=== PATIENT | female | born 1950 | race Caucasian/White ===

== ENCOUNTER 2022-08-09 23:27 | Outpatient (CLI) | payer MEDICARE | END 2022-08-09 23:59 | disposition critical access hospital (66) | LOC: EMS 23:27 | DX: R55 Syncope and collapse (principal); R19.7 Diarrhea, unspecified; R73.9 Hyperglycemia, unspecified | CPT/HCPCS: A0425; A0427 ==

== ENCOUNTER 2022-08-09 23:42 | Emergency (ER) | payer MEDICARE ==
[2022-08-10] MEDS ORDERED: SODIUM CHLORIDE 0.9% 1,000 ML IV STA (00:03)
[2022-08-10] MEDS ORDERED: ONDANSETRON 4 MG/2 ML VIAL IVP STA (00:03)
[2022-08-10] MEDS ORDERED: ONDANSETRON 4 MG/2 ML VIAL ONE (00:13)
[2022-08-10] MEDS ORDERED: iohexoL-300 100 ML VIAL ONE (00:17)
[2022-08-10 00:23] LABS: BASOPHILS # (AUTO) 0.1 10^3/uL (0.0-0.1); BASOPHILS % (AUTO) 0.6 %; EOSINOPHILS # (AUTO) 0.1 10^3/uL (0.0-0.7); EOSINOPHILS % (AUTO) 1.2 %; HCT - HEMATOCRIT 49.4 % (37.0-47.0); HGB - HEMOGLOBIN 17.1 g/dL (12.0-16.0); LYMPHOCYTES % (AUTO) 19.8 %; MEAN CORPUSCULAR HEMOGLOBIN 29.2 pg (27.0-31.0); MEAN CORPUSCULAR HGB CONC 34.6 g/dL (32.0-36.0); MEAN CORPUSCULAR VOLUME 84.3 fL (81.0-99.0); MEAN PLATELET VOLUME 9.6 fL (7.9-10.8); MONOCYTES # (AUTO) 0.6 10^3/uL (0.0-1.0); MONOCYTES % (AUTO) 5.9 %; NEUTROPHILS # (AUTO) 7.2 10^3/uL (1.5-6.6); NEUTROPHILS % (AUTO) 72.1 %; PLT - PLATELET COUNT 191 10^3/uL (130-450); RED BLOOD COUNT 5.86 10^6/uL (4.20-5.40); RED CELL DISTRIBUTION WIDTH 12.2 % (12.0-15.0); WHITE BLOOD COUNT 9.9 x10^3/uL (4.8-10.8)
--- NOTE | 2022-08-10 00:45 | ED Physician Documentation ---
History of Present Illness - Stated complaint Stated Complaint: ABD PX - Chief complaint Chief Complaint: Abd Pain - Additonal information Additional information: Patient is 71-year-old female presenting to the emergency department with abdom inal pain, nausea, vomiting and syncope. Reports earlier this evening began feeling acutely nauseous and lightheaded. Hessel as though she needed to use the restroom however while in the bathroom she became increasingly lightheaded and syncopized. Reports that she has a longstanding history of a lower abdominal mass associated with the surgical site from the excision of a 14 pound ovarian cyst in 2019. Last bowel movement was earlier today. 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 , Ovarian cysts - Past Surgical History Past Surgical History: Yes General: Cholecystectomy /SWEATBAND SHAPER: Other HEENT: Tonsil/Adenoidectomy - Present Medications Home Medications: Ambulatory Orders Medication Instructions Recorded Confirmed No Known Home Medications 08/09/22 08/09/22 - Allergies Allergies/Adverse Reactions: Allergies Allergy/AdvReac Type Severity Reaction Status Date / Time No Known Drug Allergies Allergy Verified 08/09/22 23:59 - Social History Does the pt smoke?: No Smoking Status: Never smoker Does the pt drink ETOH?: No Does the pt have substance abuse?: No - Immunizations Immunizations: TDAP >10years/unknown PD ED PE NORMAL - Vitals Vital signs reviewed: Yes - General General: Alert and oriented X 3, No acute distress, Well developed/nourished - HEENT HEENT: Atraumatic, Pharynx benign - Neck Neck: Supple, no meningeal sign - Cardiac Cardiac: RRR, No murmur - Abdomen Abdomen: Other (Large ventral incisional hernia, tender to palpation.) Results - Vitals Vitals: Oxygen O2 Source Nasal cannula - EKG (time done) 0009 EKG releavant findings:: EKG personally interpreted by author of this note. Relevant findings are: Sinus rhythm with rate 86 bpm. Normal axis. Normal [place], QRS, QTc intervals. No ST segment elevations or T wave inversions. - Labs Labs: Laboratory Tests 08/10/22 08/10/22 08/10/22 00:11 00:11 00:11 WBC 9.9 RBC 5.86 H Hgb 17.1 H Hct 49.4 H MCV 84.3 MCH 29.2 MCHC 34.6 RDW 12.2 Plt Count 191 MPV 9.6 Neut # (Auto) 7.2 H Lymph # (Auto) 2.0 [place] # (Auto) 0.6 Eos # (Auto) 0.1 Baso # (Auto) 0.1 Absolute Nucleated RBC 0.00 Nucleated RBC % 0.0 PT INR Sodium 136 Potassium 4.1 Chloride 99 L Carbon Dioxide 26 Anion Gap 11.0 BUN 23 H Creatinine 0.9 Estimated GFR (MDRD) 62 L Glucose 402 H POC Whole Bld Glucose Lactic Acid Calcium 10.6 H Total Bilirubin 1.2 H AST 24 ALT 40 Alkaline Phosphatase 91 Troponin I High Sens < 2.3 L Total Protein 7.4 Albumin 4.2 Globulin 3.2 Albumin/Globulin Ratio 1.3 Lipase 30 08/10/22 08/10/22 08/10/22 00:11 00:49 02:05 WBC RBC Hgb Hct MCV MCH MCHC RDW Plt Count MPV Neut # (Auto) Lymph # (Auto) [place] # (Auto) Eos # (Auto) Baso # (Auto) Absolute Nucleated RBC Nucleated RBC % PT 10.9 INR 1.0 Sodium Potassium Chloride Carbon Dioxide Anion Gap BUN Creatinine Estimated GFR (MDRD) Glucose POC Whole Bld Glucose 460 H Lactic Acid 1.5 Calcium Total Bilirubin AST ALT Alkaline Phosphatase Troponin I High Sens Total Protein Albumin Globulin Albumin/Globulin Ratio Lipase PD Medical Decision Making - ED course Complexity details: reviewed old records, reviewed results, re-evaluated patient, d/w patient, d/w data quality consultant ED course: Pt presents with irreducible ventral hernia with SBO. Labs WNL. Hemodynamically stable. NGT placed. Pt declined pain medication. Given Zofran, droperidol for persistent N/V and 0.5 mg ativan for NGT placement. No Med surge beds in house. [facility] - Departure Disposition: 02 Transfer Acute Care Hosp Clinical Impression: Incarcerated ventral hernia, Small bowel obstruction Discharge Date/Time: 08/10/22 05:12
[2022-08-10 00:46] LABS: ALBUMIN 4.2 g/dL (3.2-5.5); ALBUMIN/GLOBULIN RATIO 1.3 (1.0-2.2); BILIRUBIN,TOTAL 1.2 mg/dL (0.2-1.0); CALCIUM 10.6 mg/dL (8.5-10.3); CREATININE 0.9 mg/dL (0.4-1.0); POTASSIUM 4.1 mmol/L (3.5-5.0); TOTAL PROTEIN 7.4 g/dL (6.7-8.2)
[2022-08-10] MEDS ORDERED: IPRATROPIUM/ALBUTEROL 3 ML NEB INH STA (00:49)
[2022-08-10 01:00] LABS: PT - PROTHROMBIN TIME 10.9 secs (9.9-12.6)
[2022-08-10] MEDS ORDERED: DROPERIDOL 5 MG/2 ML VIAL IVP STA (01:18)
[2022-08-10] MEDS ORDERED: INSULIN REGULAR HUMAN 300 UNIT/3 ML VIAL SUBQ STA (01:19)
[2022-08-10] MEDS ORDERED: LORazepam 2 MG/ML VIAL IVP STA (02:58)
[2022-08-10] MEDS ORDERED: iohexoL-300 100 ML VIAL IVP ONE (03:02)
[2022-08-10 04:45] VITALS: BP 135/102
--- NOTE | 2022-08-10 09:13 | CT Report ---
PROCEDURE: ABDOMEN/PELVIS W INDICATIONS: Concern incarcerated hernai CONTRAST: Omni 300 100ml TECHNIQUE: After the administration of contrast, 5 mm thick sections acquired from the diaphragms to the symphys is. 5 mm thick coronal and sagittal reformats were acquired. For radiation dose reduction, the foll owing was used: automated exposure control, adjustment of mA and/or kV according to patient size. COMPARISON: FINDINGS: Image quality: Excellent. Lung bases and heart: Unremarkable. Liver: Hepatic fatty infiltration Gallbladder and biliary tree: Cholelithiasis Spleen: No splenomegaly. Pancreas: No pancreatic ductal dilation. Adrenals: No adrenal nodule. Kidneys and ureters: No hydronephrosis. No renal cystic lesion which requires follow up. No solid mas s. Bowel and peritoneum: There is fluid distention and bowel enhancement of the stomach and proximal sma ll bowel. The proximal small bowel diameter measures up to 2.7 cm. There is a ventral hernia containi ng bowel, and the inferior and none is decompressed. Lymph nodes: No central or retroperitoneal adenopathy. Vessels: No infrarenal aortic aneurysm. PELVIS Reproductive organs: Unremarkable. Bladder: No abnormal wall thickening, accounting for underdistension. Pelvic lymph nodes: No pelvic adenopathy by size criteria. Bones: No aggressive osseous abnormality. Other: There are 2 separate midline ventral hernias. The superior hernia contains fat, and the more i nferior ventral hernia contains bowel, as above. IMPRESSION: 1. Small bowel obstruction associated with midline ventral hernia. Note: Final report is concordant with preliminary interpretation provided by [facility] Reviewed by: Cristo White MD on 08/10/2022 8:11 AM JAVAN Approved by: Cristo White MD on 08/10/2022 8:11 AM JAVAN Station ID: [id number]
--- NOTE | 2022-08-10 09:15 | CT Report ---
PROCEDURE: CT brain without contrast INDICATIONS: fall/syncope TECHNIQUE: Noncontrast 4.5 mm thick angled axial sections acquired from the foramen magnum to the vertex. For r adiation dose reduction, the following was used: automated exposure control, adjustment of mA and/or kV according to patient size. COMPARISON: None. FINDINGS: Image quality: Excellent. CSF spaces: Basal cisterns are patent. No extra-axial fluid collections. Ventricles are normal in size and shape. Brain: No midline shift. No intracranial masses or hemorrhage. Doss-white matter interface is norm al. Skull and face: Calvarium and visualized facial bones are intact, without suspicious lesions. Hyper ostosis Sinuses: Visualized sinuses and mastoids are clear. IMPRESSION: Unremarkable CT brain Note: Final report is concordant with preliminary interpretation provided by [facility] Reviewed by: Cristo White MD on 08/10/2022 8:13 AM JAVAN Approved by: Cristo White MD on 08/10/2022 8:13 AM AKNABILA Station ID: [id number]
--- NOTE | 2022-08-10 09:53 | XRAY Report ---
PROCEDURE: Chest for Line Placement INDICATIONS: NG TUBE TECHNIQUE: One view of the chest was acquired. COMPARISON: None. FINDINGS: Surgical changes and devices: Nasogastric tube in the stomach Lungs and pleura: No pleural effusions or pneumothorax. Lungs are clear. Mediastinum: Mediastinal contours appear normal. Heart size is normal. Bones and chest wall: No suspicious bony lesions. Overlying soft tissues appear unremarkable. IMPRESSION: Nasogastric tube in stomach Note: Final report is concordant with preliminary interpretation provided by [facility] Reviewed by: Cristo White MD on 08/10/2022 8:52 AM AKDT Approved by: Cristo White MD on 08/10/2022 8:52 AM AKDT Station ID: [id number]
== END 2022-08-10 05:12 | disposition short-term general hospital (02) ==
LOC: ED 23:42
DX: K43.6 Other and unspecified ventral hernia with obstruction, without gangrene (principal); K56.609 Unspecified intestinal obstruction, unspecified as to partial versus complete obstruction
CPT/HCPCS: 36415; 70450; 74177; 80053; 83605; 83690; 84484; 85025; 85610; 93005; 96374; 96375; 99284; 99285; J1815; J2060; Q9967

== ENCOUNTER 2022-08-10 04:53 | Outpatient (CLI) | payer MEDICARE | END 2022-08-10 22:45 | disposition short-term general hospital (02) | LOC: EMS 04:53 | PROVIDERS: ATTEND Student in an Organized Health Care Education/Training Program | DX: K56.609 Unspecified intestinal obstruction, unspecified as to partial versus complete obstruction (principal) | CPT/HCPCS: A0425; A0428 ==

== ENCOUNTER 2022-09-25 07:24 | Outpatient (CLI) | payer MEDICARE ==
[2022-09-25 12:28] LABS: BASOPHILS % (AUTO) 1.1 %; EOSINOPHILS # (AUTO) 0.1 10^3/uL (0.0-0.7); EOSINOPHILS % (AUTO) 2.4 %; HCT - HEMATOCRIT 45.9 % (37.0-47.0); HGB - HEMOGLOBIN 14.9 g/dL (12.0-16.0); LYMPHOCYTES # (AUTO) 1.3 10^3/uL (1.5-3.5); LYMPHOCYTES % (AUTO) 34.5 %; MEAN CORPUSCULAR HEMOGLOBIN 29.1 pg (27.0-31.0); MEAN CORPUSCULAR HGB CONC 32.5 g/dL (32.0-36.0); MEAN CORPUSCULAR VOLUME 89.6 fL (81.0-99.0); MEAN PLATELET VOLUME 10.1 fL (7.9-10.8); MONOCYTES # (AUTO) 0.3 10^3/uL (0.0-1.0); MONOCYTES % (AUTO) 7.7 %; PLT - PLATELET COUNT 191 10^3/uL (130-450); RED BLOOD COUNT 5.12 10^6/uL (4.20-5.40); RED CELL DISTRIBUTION WIDTH 13.2 % (12.0-15.0); WHITE BLOOD COUNT 3.8 x10^3/uL (4.8-10.8)
[2022-09-25 13:10] LABS: ALBUMIN 4.3 g/dL (3.2-5.5); ALBUMIN/GLOBULIN RATIO 1.7 (1.0-2.2); ALKALINE PHOSPHATASE 78 IU/L (42-121); ALT ALANINE AMINOTRANSFERASE 27 IU/L (10-60); AST ASPARTATE AMINOTRANSFERASE 19 IU/L (10-42); BILIRUBIN,TOTAL 1.7 mg/dL (0.2-1.0); BUN - BLOOD UREA NITROGEN 19 mg/dL (6-20); CALCIUM 9.9 mg/dL (8.5-10.3); CARBON DIOXIDE - CO2 28 mmol/L (21-32); CHLORIDE 108 mmol/L (101-111); CHOL/HDL RATIO 6.5 (<4.4); CHOLESTEROL 214 mg/dL; CREATININE 0.9 mg/dL (0.6-1.3); GFR - MDRD 62 (>89); GLUCOSE 165 mg/dL (74-104); HDL CHOLESTEROL 33 mg/dL; LDL CHOLESTEROL,CALCULATED 149 mg/dL; LDL/HDL RATIO 4.5 (<4.4); POTASSIUM 4.5 mmol/L (3.5-4.5); SODIUM 141 mmol/L (135-145); TOTAL PROTEIN 6.8 g/dL (6.4-8.9); TRIGLYCERIDES 160 mg/dL (48-352); VLDL CHOLESTEROL 32 mg/dL
[2022-09-25 13:38] LABS: ESTIMATED AVERAGE GLUCOSE 189 mg/dL (70-100); HEMOGLOBIN A1c% 8.2 % (4.27-6.07)
[2022-09-25 18:25] LABS: MICROALBUM/CREATININE RATIO,UR 21.6 ug/mg (<30.0); MICROALBUMIN,URINE 1.6 mg/dL
== END 2022-09-25 07:25 | disposition home or self-care (01) ==
LOC: LAB.N 07:24
PROVIDERS: ATTEND Physician Assistant
DX: E11.9 Type 2 diabetes mellitus without complications (principal); Z13.220 Encounter for screening for lipoid disorders
CPT/HCPCS: 36415; 80053; 80061; 82043; 82570; 83036; 83721; 85025

== ENCOUNTER 2022-12-23 07:30 | Outpatient (CLI) | payer MEDICARE ==
[2022-12-23 12:39] LABS: ESTIMATED AVERAGE GLUCOSE 131 mg/dL (70-100); HEMOGLOBIN A1c% 6.2 % (4.27-6.07)
[2022-12-23 12:55] LABS: ALBUMIN 4.2 g/dL (3.2-5.5); ALBUMIN/GLOBULIN RATIO 1.7 (1.0-2.2); BILIRUBIN,DIRECT 0.11 mg/dL (0.03-0.18); BILIRUBIN,TOTAL 1.1 mg/dL (0.2-1.0); CALCIUM 10.1 mg/dL (8.5-10.3); CREATININE 0.8 mg/dL (0.6-1.3); POTASSIUM 4.3 mmol/L (3.5-4.5); TOTAL PROTEIN 6.7 g/dL (6.4-8.9)
== END 2022-12-23 07:31 | disposition home or self-care (01) ==
LOC: LAB.N 07:30
PROVIDERS: ATTEND Physician Assistant
DX: E11.9 Type 2 diabetes mellitus without complications (principal); E80.6 Other disorders of bilirubin metabolism
CPT/HCPCS: 36415; 80053; 82248; 83036

== ENCOUNTER 2023-02-10 08:15 | Day surgery (SDC) | payer MEDICARE ==
[2023-02-10] MEDS ORDERED: LACTATED RINGERS 1,000 ML IV ONE ×2 (08:44)
--- NOTE | 2023-02-10 09:41 | ANESTHESIA ---
Pre-Anesthesia VS, & Labs - Diagnosis screening - Procedure colonoscopy Vital Signs: Temp Pulse Resp BP Pulse Ox O2 Flow Rate 36.3 C L 93 16 149/69 H 100 02/10/23 08:54 02/10/23 08:54 02/10/23 08:54 02/10/23 08:54 02/10/23 08:54 Height: 5 ft 7 in Weight (kg): 81.1 kg Body Mass Index: 28.0 BMI Classification: Overweight - NPO >8 hours - Is Patient ?: No - Lab Results Current Lab Results: Laboratory Tests 02/10/23 08:57: POC Whole Bld Glucose 91 Home Medications and Allergies Home Medications: Ambulatory Orders Insulin Glargine [Lantus Solostar] 13 units SUBQ DAILY PM 02/10/23 Insulin Glargine [Lantus Solostar] 13 units SUBQ DAILY PM 02/10/23 Allergies/Adverse Reactions: Allergies Allergy/AdvReac Type Severity Reaction Status Date / Time No Known Drug Allergies Allergy Verified 08/09/22 23:59 Anes History & Medical History - Anesthetic History Anesthesia Complications: reports: No previous complications - Medical History Cardiovascular: reports: None Pulmonary: reports: None Gastrointestinal: reports: None Urinary: reports: None Musculoskeletal: reports: None Endocrine/Autoimmune: reports: Type 2 diabetes Skin: reports: None Smoking Status: Never smoker - Surgical History General: reports: Cholecystectomy Eyes Ears Nose Throat (EENT): reports: Tonsil/Adenoidectomy Gynecologic: reports: Other Exam General: Alert, Oriented x3 Dental: WNL Mouth Opening: Greater than 4 Fingerbreadths Mallampati classification: III Thyromental Distance: 4-6 cm Respiratory: Lungs clear Cardiovascular: Regular rate Plan Anesthesia Type: Total IV Consent for Procedure(s) Verified and Reviewed: Yes Code Status: Attempt Resuscitation ASA classification: 2-Mild systemic disease Is this case an emergency?: No
[2023-02-10] MEDS ORDERED: PROPOFOL 500 MG/50 ML 500 MG/50 ML VIAL ONE (10:29)
[2023-02-10] MEDS ORDERED: ONDANSETRON 4 MG/2 ML VIAL ONE (10:50)
[2023-02-10] MEDS ORDERED: LACTATED RINGERS 500 ML IV ONE (11:20)
[2023-02-10 11:34] VITALS: O2SAT 98
[2023-02-10 11:44] VITALS: BP 118/61
--- NOTE | 2023-02-10 14:07 | ANESTHESIA POST OP EVALUATION ---
Anesthesia Post Eval - Post Anesthesia Eval Vitals: Last Vital Signs Temp 36.2 C L 02/10/23 11:20 Pulse 77 02/10/23 11:39 Resp 18 02/10/23 11:39 BP 118/61 02/10/23 11:39 Pulse Ox 98 02/10/23 11:39 O2 Flow Rate CV Function Including HR & BP: Stable Pain Control: Satisfactory Nausea & Vomiting: Negative Mental Status: Baseline Respiratory Status: Airway Patent Hydration Status: Satisfactory Anesthesia Complications: None
== END 2023-02-10 08:16 | disposition home or self-care (01) ==
LOC: SDS 08:15
PROVIDERS: ATTEND Surgery
PROC: 0DBN8ZZ Excision of Sigmoid Colon, Via Natural or Artificial Opening Endoscopic (ICD-10-PCS; 2023-02-10)
PROC: 0DBH8ZZ Excision of Cecum, Via Natural or Artificial Opening Endoscopic (ICD-10-PCS; 2023-02-10)
PROC: 0DBK8ZZ Excision of Ascending Colon, Via Natural or Artificial Opening Endoscopic (ICD-10-PCS; principal; 2023-02-10 09:30)
DX: Z12.11 Encounter for screening for malignant neoplasm of colon (principal); D12.0 Benign neoplasm of cecum; D12.2 Benign neoplasm of ascending colon; D12.5 Benign neoplasm of sigmoid colon; K57.30 Diverticulosis of large intestine without perforation or abscess without bleeding; E11.9 Type 2 diabetes mellitus without complications
CPT/HCPCS: 45380; 45385; J7120

== ENCOUNTER 2023-06-24 07:25 | Outpatient (CLI) | payer MEDICARE ==
[2023-06-24 11:44] LABS: BASOPHILS % (AUTO) 0.8 %; EOSINOPHILS # (AUTO) 0.2 10^3/uL (0.0-0.7); EOSINOPHILS % (AUTO) 3.6 %; HCT - HEMATOCRIT 47.6 % (37.0-47.0); HGB - HEMOGLOBIN 15.6 g/dL (12.0-16.0); LYMPHOCYTES # (AUTO) 1.8 10^3/uL (1.5-3.5); LYMPHOCYTES % (AUTO) 36.3 %; MEAN CORPUSCULAR HEMOGLOBIN 29.1 pg (27.0-31.0); MEAN CORPUSCULAR HGB CONC 32.8 g/dL (32.0-36.0); MEAN CORPUSCULAR VOLUME 88.6 fL (81.0-99.0); MEAN PLATELET VOLUME 10.1 fL (7.9-10.8); MONOCYTES # (AUTO) 0.3 10^3/uL (0.0-1.0); MONOCYTES % (AUTO) 6.4 %; NEUTROPHILS # (AUTO) 2.6 10^3/uL (1.5-6.6); NEUTROPHILS % (AUTO) 52.7 %; PLT - PLATELET COUNT 177 10^3/uL (130-450); RED BLOOD COUNT 5.37 10^6/uL (4.20-5.40); RED CELL DISTRIBUTION WIDTH 12.3 % (12.0-15.0)
[2023-06-24 12:01] LABS: ESTIMATED AVERAGE GLUCOSE 134 mg/dL (70-100); HEMOGLOBIN A1c% 6.3 % (4.27-6.07)
[2023-06-24 12:08] LABS: ALBUMIN 4.3 g/dL (3.2-5.5); ALBUMIN/GLOBULIN RATIO 1.7 (1.0-2.2); ALKALINE PHOSPHATASE 97 IU/L (42-121); ALT ALANINE AMINOTRANSFERASE 14 IU/L (10-60); AST ASPARTATE AMINOTRANSFERASE 15 IU/L (10-42); BILIRUBIN,TOTAL 1.1 mg/dL (0.2-1.0); BUN - BLOOD UREA NITROGEN 24 mg/dL (6-20); CALCIUM 10.3 mg/dL (8.5-10.3); CARBON DIOXIDE - CO2 30 mmol/L (21-32); CHLORIDE 104 mmol/L (101-111); CHOL/HDL RATIO 5.7 (<4.4); CHOLESTEROL 218 mg/dL; CREATININE 0.9 mg/dL (0.6-1.3); GFR - MDRD 62 (>89); GLUCOSE 129 mg/dL (74-104); HDL CHOLESTEROL 38 mg/dL; LDL CHOLESTEROL,CALCULATED 137 mg/dL; LDL/HDL RATIO 3.6 (<4.4); SODIUM 140 mmol/L (135-145); TOTAL PROTEIN 6.8 g/dL (6.4-8.9); TRIGLYCERIDES 215 mg/dL (48-352); VLDL CHOLESTEROL 43 mg/dL
[2023-06-24 12:23] LABS: MICROALBUMIN,URINE < 0.7 mg/dL
== END 2023-06-24 07:26 | disposition home or self-care (01) ==
LOC: LAB.N 07:25
PROVIDERS: ATTEND Physician Assistant
DX: Z13.220 Encounter for screening for lipoid disorders (principal); E11.9 Type 2 diabetes mellitus without complications
CPT/HCPCS: 36415; 80053; 80061; 82043; 82570; 83036; 83721; 85025

== ENCOUNTER 2023-07-12 11:52 | Outpatient (CLI) | payer MEDICARE | END 2023-07-12 23:59 | disposition critical access hospital (66) | LOC: EMS 11:52 | DX: R55 Syncope and collapse (principal) | CPT/HCPCS: A0425; A0429 ==

== ENCOUNTER 2023-07-12 12:07 | Emergency (ER) | payer MEDICARE ==
--- NOTE | 2023-07-12 12:35 | ED Physician Documentation ---
History of Present Illness - Stated complaint Stated Complaint: SYNCOPAL EPISODE/NV - Chief complaint Chief Complaint: General - History obtained from History obtained from: Patient, Family - History of Present Illness Timing: Last night Pain level max: 5 Pain level now: 0 - Additonal information Additional information: 72-year-old female presents to the emergency department stating that she had abdominal pain and cramping last night. States have a history of multiple bowel surgeries in the past. Has a known ventral hernia and has had "a bowel blockage" in the past. She states that she did not eat or drink last night in order to help the blockage resolved. She states that this morning she was on the toilet having a bowel movement when she had a syncopal event. She does not know how long she was unconscious for. She states while on the floor she had an episode of emesis x 1. She is not on blood thinners. Does not have any headache. No neck or back pain. She states that she only has mild residual pain in her lower abdomen. No fevers. No chills. No recent antibiotics. 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 , Ovarian cysts : None HEENT: None Psych: None Musculoskeletal: None Derm: None - Past Surgical History Past Surgical History: Yes General: Cholecystectomy /STATION TENDER: Other HEENT: Tonsil/Adenoidectomy - Present Medications Home Medications: Ambulatory Orders Medication Instructions Recorded Confirmed Insulin Glargine [Lantus Solostar] 13 units SUBQ DAILY PM 02/10/23 07/12/23 - Allergies Allergies/Adverse Reactions: Allergies Allergy/AdvReac Type Severity Reaction Status Date / Time No Known Drug Allergies Allergy Verified 07/12/23 12:50 - Social History Does the pt smoke?: No Smoking Status: Never smoker Does the pt drink ETOH?: No Does the pt have substance abuse?: No - Immunizations Immunizations: TDAP >10years/unknown PD ED PE NORMAL - Vitals Vital signs reviewed: Yes - General General: Alert and oriented X 3, No acute distress - HEENT HEENT: Atraumatic, PERRL, Moist mucous membranes - Neck Neck: Supple, no meningeal sign - Cardiac Cardiac: RRR, Strong equal pulses - Respiratory Respiratory: No respiratory distress, Clear bilaterally - Abdomen Abdomen: Soft, Non distended, Other (Reducible hernia in the lower abdomen. There is some tenderness here. No skin changes.) - Back Back: No spinal TTP - Derm Derm: Warm and dry - Extremities Extremities: Normal ROM s pain, No edema, No calf tenderness / cord - Neuro Neuro: Alert and oriented X 3, phlebotomy technician 2-12 intact, No motor deficit, No sensory deficit, Normal speech Eye Opening: Spontaneous Motor: Obeys Commands Verbal: Oriented GCS Score: 15 - Psych Psych: Normal mood, Normal affect Results - Vitals Vitals: Vital Signs - 24 hr 07/12/23 07/12/23 07/12/23 12:12 14:21 16:00 Temperature 35.9 C L Heart Rate 80 84 85 Respiratory 16 15 14 Rate Blood Pressure 128/69 118/66 127/67 O2 Saturation 98 97 99 07/12/23 17:31 Temperature 36.1 C L Heart Rate 81 Respiratory 14 Rate Blood Pressure 123/63 O2 Saturation 96 Oxygen O2 Source Room air - EKG (time done) 1249 EKG releavant findings:: EKG personally interpreted by author of this note. Relevant findings are: Rate: Rate (enter#) (85) Rhythm: NSR [place]: Normal Intervals: Normal [place] QRS: Normal Ischemia: Normal ST segments, Other (RSR' v1-2) - Labs Labs: Laboratory Tests 07/12/23 07/12/23 12:38 12:38 WBC 9.8 RBC 5.42 H Hgb 15.7 Hct 47.2 H MCV 87.1 MCH 29.0 MCHC 33.3 RDW 12.4 Plt Count 174 MPV 9.3 Neut # (Auto) 8.2 H Lymph # (Auto) 0.9 L [place] # (Auto) 0.5 Eos # (Auto) 0.1 Baso # (Auto) 0.0 Absolute Nucleated RBC 0.00 Nucleated RBC % 0.0 Sodium 141 Potassium 4.4 Chloride 108 Carbon Dioxide 26 Anion Gap 7.0 BUN 21 H Creatinine 0.9 Estimated GFR (MDRD) 62 L Glucose 173 H Calcium 9.9 Total Bilirubin 1.2 H AST 14 ALT 16 Alkaline Phosphatase 94 Troponin I High Sens < 2.3 L Total Protein 6.9 Albumin 4.2 Globulin 2.7 Albumin/Globulin Ratio 1.6 Lipase 22 - Rads (name of study) Abdomen/pelvis CT Relevant Findings:: Final report received, See rad report PD Medical Decision Making - ED course Complexity details: reviewed results, re-evaluated patient, considered differential, d/w patient ED course: No significant lab abnormalities. Patient was given IV fluids and feels much better. Likely that she had an episode of vasovagal syncope today secondary to straining on the toilet. Her lower abdomen began to hurt again, so CT was performed, this showed a possible incarcerated hernia with small bowel obstruction. Her hernia was fully reduced in the emergency department and pain completely resolved. Consulted Dr. Mcmahon, general surgery who came and evaluated the patient. Placed the patient in a binder to help the hernia stay reduced. Patient is not having any pain or vomiting. Tolerating p.o. without difficulty. No evidence of bowel ischemia. We will have her follow-up with Dr. Christensen, general surgery as scheduled for discussion of repair of her hernia. Patient counseled regarding signs and symptoms for which I believe and urgent re-evaluation would be necessary. Patient with good understanding of and agreement to plan and is comfortable going home at this time This document was made in part using voice recognition software. While efforts are made to proofread this document, sound alike and grammatical errors may occur. Departure - Departure Disposition: 01 Home, Self Care Clinical Impression: Ventral hernia Qualifiers: Obstruction and gangrene presence: without obstruction or gangrene Qualified Code(s): K43.9 - Ventral hernia without obstruction or gangrene Condition: Good Instructions: ED Hernia Inguinal Follow-Up: Jerry Christensen MD [Provider Admit Priv/Credential] - Comments: You hernia was reduced today. This appears to have resolved to the bowel obstruction. Please follow-up with your surgeon for further care. You were seen by Dr. Mcmahon from surgery today. Forms: PCP List Discharge Date/Time: 07/12/23 17:50
[2023-07-12 12:41] LABS: BASOPHILS % (AUTO) 0.3 %; EOSINOPHILS # (AUTO) 0.1 10^3/uL (0.0-0.7); EOSINOPHILS % (AUTO) 0.5 %; HCT - HEMATOCRIT 47.2 % (37.0-47.0); HGB - HEMOGLOBIN 15.7 g/dL (12.0-16.0); LYMPHOCYTES # (AUTO) 0.9 10^3/uL (1.5-3.5); LYMPHOCYTES % (AUTO) 9.5 %; MEAN CORPUSCULAR HGB CONC 33.3 g/dL (32.0-36.0); MEAN CORPUSCULAR VOLUME 87.1 fL (81.0-99.0); MEAN PLATELET VOLUME 9.3 fL (7.9-10.8); MONOCYTES # (AUTO) 0.5 10^3/uL (0.0-1.0); MONOCYTES % (AUTO) 5.3 %; NEUTROPHILS # (AUTO) 8.2 10^3/uL (1.5-6.6); NEUTROPHILS % (AUTO) 84.2 %; PLT - PLATELET COUNT 174 10^3/uL (130-450); RED BLOOD COUNT 5.42 10^6/uL (4.20-5.40); RED CELL DISTRIBUTION WIDTH 12.4 % (12.0-15.0); WHITE BLOOD COUNT 9.8 x10^3/uL (4.8-10.8)
[2023-07-12 13:02] LABS: TROPONIN I HIGH SENSITIVITY < 2.3 ng/L (2.3-14.8)
[2023-07-12 13:49] LABS: ALBUMIN 4.2 g/dL (3.2-5.5); ALBUMIN/GLOBULIN RATIO 1.6 (1.0-2.2); ALKALINE PHOSPHATASE 94 IU/L (42-121); ALT ALANINE AMINOTRANSFERASE 16 IU/L (10-60); AST ASPARTATE AMINOTRANSFERASE 14 IU/L (10-42); BILIRUBIN,TOTAL 1.2 mg/dL (0.2-1.0); BUN - BLOOD UREA NITROGEN 21 mg/dL (6-20); CALCIUM 9.9 mg/dL (8.5-10.3); CARBON DIOXIDE - CO2 26 mmol/L (21-32); CHLORIDE 108 mmol/L (101-111); CREATININE 0.9 mg/dL (0.6-1.3); GFR - MDRD 62 (>89); GLUCOSE 173 mg/dL (74-104); LIPASE 22 U/L (11-82); POTASSIUM 4.4 mmol/L (3.5-4.5); SODIUM 141 mmol/L (135-145); TOTAL PROTEIN 6.9 g/dL (6.4-8.9)
--- NOTE | 2023-07-12 14:10 | XRAY Report ---
PROCEDURE: Chest 1V INDICATIONS: Chest Pain TECHNIQUE: One view of the chest was acquired. COMPARISON: 08/10/2022 FINDINGS: Surgical changes and devices: None. Lungs and pleura: No pleural effusions or pneumothorax. Lungs are clear. Mediastinum: Mediastinal contours appear normal. Heart size is normal. Bones and chest wall: No suspicious bony lesions. Overlying soft tissues appear unremarkable. IMPRESSION: No acute cardiopulmonary findings Reviewed by: Cristo White MD on 07/12/2023 1:08 PM AKDT Approved by: Cristo White MD on 07/12/2023 1:08 PM AKDT Station ID: [id number]
[2023-07-12] MEDS ORDERED: iohexoL-300 100 ML VIAL ONE (14:32)
[2023-07-12] MEDS: iohexoL-300 100 ML VIAL IVP ONE (14:54)
--- NOTE | 2023-07-12 15:17 | CT Report ---
PROCEDURE: CT abdomen pelvis with contrast INDICATIONS: abd pain, vomiting TECHNIQUE: Helical axial CT of the abdomen and pelvis was obtained after intravenous contrast adminis tration and reformatted in multiple planes. Radiation dose reduction was achieved using automated exp osure control or adjustment of mA and/or kV according to patient size. COMPARISON: 08/09/2022 FINDINGS: Lower thorax: The lung bases are clear. Heart size normal. Small hiatal hernia. Liver: Hepatic cysts measure up to 2.5 cm. Biliary system: Cholecystectomy Pancreas: Unremarkable without mass or inflammation evident. Spleen: Normal in size and density. Adrenals: Normal morphology and density. Reproductive system: Unremarkable as visualized. Urinary system: Normal renal size and attenuation. No renal calculi, hydronephrosis, or solid mass p resent. Urinary bladder unremarkable. Gastrointestinal system: There is dilated fluid-filled small bowel proximal to a midline ventral her nasir containing several loops of bowel. Bowel distal to the hernia is decompressed, all consistent wit h recurrent small bowel obstruction. Normal appendix identified. No free air or free fluid. Multiple diverticuli arise from the sigmoid colon without evidence of diverticulitis Peritoneal spaces: No mesenteric or retroperitoneal adenopathy. No free air. No free fluid. Vasculature: The IVC, aorta and iliac vasculature are unremarkable. Abdominal wall: Abdominal wall is intact without evidence of inguinal hernias. A additional midline v entral hernia contains fat remains unchanged Musculoskeletal: Normal bone mineralization. No acute fractures. IMPRESSION: Recurrent small bowel obstruction associated with ventral hernia contains several loops of bowel, sim ilar to the prior exam Reviewed by: Cristo White MD on 07/12/2023 2:15 PM AKDT Approved by: Cristo White MD on 07/12/2023 2:15 PM AKDT Station ID: [id number]
--- NOTE | 2023-07-12 16:25 | CONSULTATION NOTE ---
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 last pm her hernia bulge became much larger and hard. she feels much improved after her hernia bulge was reduced. 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 , Ovarian cysts : reports: None HEENT: reports: None Psych: reports: None Musculoskeletal: reports: None Derm: reports: None MRSA Hx?: No - Past Surgical History General: reports: Cholecystectomy /RESERVE OPERATOR: reports: Other HEENT: reports: Tonsil/Adenoidectomy Meds/Allgy - Home Medications Home Medications: Ambulatory Orders Medication Instructions Recorded Confirmed Insulin Glargine [Lantus Solostar] 13 units SUBQ DAILY PM 02/10/23 07/12/23 - Allergies Allergies/Adverse Reactions: Allergies Allergy/AdvReac Type Severity Reaction Status Date / Time No Known Drug Allergies Allergy Verified 07/12/23 12:50 Exam - Vital Signs Vital Signs: Vital Signs x48h Temp Pulse Resp BP Pulse Ox 07/12/23 16:00 85 14 127/67 99 07/12/23 14:21 84 15 118/66 97 07/12/23 12:12 35.9 C L 80 16 128/69 98 - Physical Exam General Appearance: positive: No acute distress, Alert Eyes Bilateral: positive: PERRL, EOMI ENT: positive: No signs of dehydration Neck: positive: No JVD, Trachea midline Respiratory: positive: No respiratory distress Abdomen: positive: Non-tender, No distention, Other (soft. pt states bulge is gone and she is much improved after ED MD reduced it) Neurologic/Psychiatric: positive: Oriented x3 Conclusion and Plan - Lab Results Laboratory Results 07/12/23 12:38: Sodium 141, Potassium 4.4, Chloride 108, Carbon Dioxide 26, Anion Gap 7.0, BUN 21 H, Creatinine 0.9, Estimated GFR (MDRD) 62 L, Glucose 173 H, Calcium 9.9, Total Bilirubin 1.2 H, AST 14, ALT 16, Alkaline Phosphatase 94, Troponin I High Sens < 2.3 L, Total Protein 6.9, Albumin 4.2, Globulin 2.7, Albumin/Globulin Ratio 1.6, Lipase 22 07/12/23 12:38: WBC 9.8, RBC 5.42 H, Hgb 15.7, Hct 47.2 H, MCV 87.1, MCH 29.0, MCHC 33.3, RDW 12.4, Plt Count 174, MPV 9.3, Neut # (Auto) 8.2 H, Lymph # (Auto) 0.9 L, [place] # (Auto) 0.5, Eos # (Auto) 0.1, Baso # (Auto) 0.0, Absolute Nucleated RBC 0.00, Nucleated RBC % 0.0 - Diagnostic Imaging Results Diagnostic Imaging Results: positive: Read independently (large low midline incisional hernia) - Diagnosis Diagnosis: incisional hernia - Plan Plan: fortunately her hernia has been reduced and she feels much improved. plan home with binder. she has an appt with surgery in a couple weeks. she is given a binder from the surgery area.
[2023-07-12 17:38] VITALS: BP 123/63; O2SAT 96
== END 2023-07-12 17:50 | disposition home or self-care (01) ==
LOC: EDUNIT# → ED 12:07
DX: R55 Syncope and collapse (principal); K43.9 Ventral hernia without obstruction or gangrene
CPT/HCPCS: 36415; 71045; 74177; 80053; 83690; 84484; 85025; 93005; 99284; Q9967

== ENCOUNTER 2023-09-21 06:24 | Day surgery (SDC) | payer MEDICARE ==
[~2023-09-21 06:24] MED LIST: ceFAZolin 2 GM VIAL ONE; metroNIDAZOLE 500 MG/100 ML 500 MG/100 ML BAG ONE
[2023-09-21] MEDS: ACETAMINOPHEN 500 MG TABLET PO ONE (07:05)
[2023-09-21] MEDS: LACTATED RINGERS 1,000 ML IV ONE ×2 (07:06→13:01)
[2023-09-21] MEDS ORDERED: BUPIVACAINE 0.5% PF 10 ML VIAL ONE (07:11)
[2023-09-21] MEDS ORDERED: LIDOCAINE 1%-EPI 1:100000 20 ML MDV ONE (07:11)
[2023-09-21] MEDS ORDERED: ONDANSETRON 4 MG/2 ML VIAL ONE ×2 (07:18→12:37)
[2023-09-21] MEDS ORDERED: DEXAMETHASONE 4 MG/ML VIAL ONE (07:18)
[2023-09-21] MEDS ORDERED: fentaNYL 100 MCG/2 ML VIAL ONE ×2 (07:18→12:29)
[2023-09-21] MEDS ORDERED: PROPOFOL 200 MG/20 ML VIAL IVP ONE (07:18)
[2023-09-21] MEDS ORDERED: ROCURONIUM 50 MG/5 ML VIAL ONE ×3 (07:18→11:14)
[2023-09-21] MEDS ORDERED: MIDAZOLAM 2 MG/2 ML VIAL ONE (07:18)
[2023-09-21] MEDS ORDERED: LIDOCAINE-PF 2% 10 ML AMP SUBQ ONE (07:18)
[2023-09-21] MEDS: BUPIVACAINE 0.5% PF 10 ML VIAL IM ONE (08:09)
[2023-09-21] MEDS: LIDOCAINE 1%-EPI 1:100000 20 ML MDV SUBQ ONE (08:09)
[2023-09-21] MEDS ORDERED: ePHEDrine 50 MG/ML VIAL IVP ONE (08:22)
--- NOTE | 2023-09-21 09:30 | ANESTHESIA ---
Pre-Anesthesia VS, & Labs - Diagnosis ventral hernia x2 - Procedure ventral hernia repair Vital Signs: Temp Pulse Resp BP Pulse Ox O2 Flow Rate 36.1 C L 78 16 144/71 H 98 09/21/23 07:06 09/21/23 07:06 09/21/23 07:06 09/21/23 07:06 09/21/23 07:06 Height: 5 ft 7 in Weight (kg): 80.4 kg Body Mass Index: 27.7 BMI Classification: Overweight - NPO >8 hours - Is Patient ?: No - Lab Results Current Lab Results: Laboratory Tests 09/21/23 07:36: POC Whole Bld Glucose 128 H Home Medications and Allergies Insulin Glargine [Lantus Solostar] 13 units SUBQ DAILY PM 02/10/23 Allergies/Adverse Reactions: Allergies Allergy/AdvReac Type Severity Reaction Status Date / Time nickel Allergy Rash Verified 09/14/23 09:37 Anes History & Medical History - Anesthetic History Anesthesia Complications: reports: No previous complications Family history of Anesthesia Complications: Denies Family history of Malignant Hyperthermia: Denies - Medical History Cardiovascular: reports: None Pulmonary: reports: None Gastrointestinal: reports: None Urinary: reports: None Neuro: reports: None Musculoskeletal: reports: Osteoporosis, Osteopenia Endocrine/Autoimmune: reports: Type 2 diabetes Skin: reports: Rosacea Smoking Status: Never smoker Psychosocial: reports: No issues indicated History of Cancer?: No - Surgical History General: reports: Cholecystectomy Eyes Ears Nose Throat (EENT): reports: Tonsil/Adenoidectomy Gynecologic: reports: Hysterectomy, Oophrectomy, Other Exam General: Alert, Oriented x3, Cooperative Dental: WNL Mouth Openin Fingerbreadth Neck Mobility: Normal Mallampati classification: II Thyromental Distance: 4-6 cm Respiratory: Lungs clear Cardiovascular: Regular rate Plan Anesthesia Type: General Consent for Procedure(s) Verified and Reviewed: Yes Code Status: Attempt Resuscitation ASA classification: 2-Mild systemic disease Is this case an emergency?: No
[2023-09-21] MEDS ORDERED: ATROPINE ABBOJECT 1 MG/10 ML SYRINGE IVP PRN (09:37)
[2023-09-21] MEDS ORDERED: MORPHINE 2 MG/ML CARPUJECT IVP PRN (09:37)
[2023-09-21] MEDS ORDERED: HYDROmorphone 0.5 MG/0.5 ML SYRINGE IVP PRN ×2 (09:37→13:17)
[2023-09-21] MEDS ORDERED: ePHEDrine 50 MG/ML VIAL IVP PRN (09:37)
[2023-09-21] MEDS ORDERED: NALOXONE 0.4 MG/ML VIAL IVP PRN (09:37)
[2023-09-21] MEDS ORDERED: fentaNYL 100 MCG/2 ML VIAL IVP PRN (09:37)
[2023-09-21] MEDS ORDERED: METOCLOPRAMIDE 10 MG/2 ML VIAL IVP PRN (09:37)
[2023-09-21] MEDS ORDERED: LACTATED RINGERS 1,000 ML IV SCH (10:00)
[2023-09-21] MEDS ORDERED: ceFAZolin 1 GM VIAL ONE (10:44)
[2023-09-21] MEDS ORDERED: SUGAMMADEX 200 MG/2 ML VIAL IVP ONE (12:37)
[2023-09-21] MEDS ORDERED: ONDANSETRON 4 MG/2 ML VIAL IVP PRN (13:17)
--- NOTE | 2023-09-21 13:23 | OPERATIVE REPORT ---
Operative Report - General Procedure Date: 09/21/23 Planned Procedure: ventral hernia repair x2 Pre-Op Diagnosis: epigastric hernia, lower midline incisional hernia Procedure Performed: ventral hernia repair x2 (lower midline hernia repaired with retrorectus repair, epigastric hernia repaired with onlay mesh) Post Op Diagnosis: lower midline incisional hernia (5x7cm), epigastric hernia (4cm) - Procedure Note Primary Surgeon: Dr. Maryjane Christensen Anesthesia Technique: General ET tube, Local Pathology: hernia sac, sent for gross only Estimated Blood Loss (mL): 30 Urine Output (mL): 450 Drain/Tube Type: Miguel Rashid round drain (lower midine subuctaneous tissue) Indications: The patient has had a lower midline incisional hernia for approximately 5 years. This causes her pain and limits her activity. She also has had an episode where the hernia became incarcerated but was able to be reduced with medication in the emergency department. She was seen and evaluated in the clinic where we discussed the risks, benefits, and alternatives of open ventral hernia repair with mesh. I explained that I plan for a retrorectus repair. She has a second hernia in the epigastric region that contains only fat on CT scan. It is also uncomfortable to the patient, and she request to have them both repaired at the same time. We discussed that this would require a separate piece of mesh. We discussed the risks, benefits, and alternatives of both procedures including bleeding, infection, damage to surrounding structures, infection of the mesh requiring removal, recurrence of one or both hernias, and the possible need for further surgeries or procedures. The patient voiced understanding, her questions were answered, and she wished to proceed. A consent was signed by the patient prior to surgery. Findings: 1.Lower midline incisional hernia measures 5 x 6 cm, retrorectus repair with 11 x [address] mesh 2. 4 cm epigastric hernia repaired with 6.[address] hernia patch Complications: None - Other Other Information/Narrative: The patient was brought to the operative suite and placed in the supine position. General endotracheal anesthesia was induced. Preoperative antibiotics were given. ERAS protocol was followed. A Mata was placed. A preop surgical timeout was performed. Local anesthetic was injected into the skin and subcutaneous tissues overlying the lower midline hernia at the site of the patient's previous surgical scar. Next, a midline incision was planned in the location of the patient's prior scar. The incision was made with a 10 blade scalpel. The incision was carried down through the skin and subcutaneous tissues to the level of the hernia sac and fascia using blunt and sharp dissection with electrocautery. The hernia sac was carefully isolated from surrounding structures. There was significant scarring and this took longer than normal. Next, the hernia sac was opened and significant intra-abdominal adhesions between the bowel, omentum, and hernia sac were noted these were carefully taken down with blunt and sharp dissection. The bowel was not injured during this process and was carefully inspected afterwards. The hernia sac was then excised. The retrorectus space was developed on both sides. Then 3-0 PDS was placed at the superior, inferior, and both lateral aspects of the developed space through the peritoneum and the posterior rectus sheath to hold the mesh in place. Next, the posterior rectus sheath was reapproximated in the midline using 2-0 PDS in a running fashion. This tissue was not under tension. Next, a 6 x [address] mesh was cut to size, 11 x 14 cm, rinsed with normal saline, and placed overlying the posterior rectus sheath. The previously placed tacking sutures were placed through the mesh and tied. The mesh sat flat. The area was irrigated with warm normal saline and hemostasis was confirmed. Additional local was injected in the area of the tacking sutures. Next, the anterior rectus sheath was reapproximated with 2-0 Vicryl in a running fashion. The subcutaneous tissues were irrigated with warm normal saline and hemostasis was confirmed. Due to the size is the subcutaneous cavity, a 12 Maori CALLIE drain was placed in the subcutaneous tissue. The drain was sewn into place with a drain stitch. Next, 2-0 Vicryl was used to reapproximate the deep dermal tissues. Finally, 4-0 Monocryl was used in a running subcuticular fashion to reapproximate the skin edges. Next attention was turned to the epigastric region.Local anesthetic was injected into the skin and subcutaneous tissues overlying the epigastric hernia. Next, a midline incision was planned overlying the hernia. The incision was made with a 15 blade scalpel. The incision was carried down through the skin and subcutaneous tissues to the level of the hernia sac and fascia using blunt and sharp dissection with electrocautery. The hernia contained preperitoneal fat which was easily reduced. The preperitoneal space was developed circumferentially. The area was inspected for hemostasis. A 6.[address] mesh was brought onto the field and placed within the hernia defect. The hernia was reapproximated with 0 Ethibond in an interrupted [id number] fascia to incorporate the mesh. The mesh straps were cut and the reapproximating sutures were tied. Next, the wound was irrigated with warm normal saline, hemostasis was confirmed, and additional local was injected. Then, 3-0 Vicryl was used to reapproximate the deep dermal tissues. Finally, 4-0 Monocryl was used in a running subcuticular fashion to reapproximate the skin edges. A sterile dressing of skin glue was placed over both incisions. The Mata catheter was removed at the end of the case. The patient was extubated in the operating room and transferred to the recovery room in stable condition. There were no complications. All counts were correct at the end of the case.
[2023-09-21] MEDS: ONDANSETRON 4 MG/2 ML VIAL IVP PRN (13:28)
--- NOTE | 2023-09-21 15:13 | ANESTHESIA POST OP EVALUATION ---
Anesthesia Post Eval - Post Anesthesia Eval Vitals: Last Vital Signs Temp 36.2 C L 09/21/23 13:53 Pulse 74 09/21/23 13:53 Resp 11 L 09/21/23 13:53 BP 132/64 H 09/21/23 13:53 Pulse Ox 95 09/21/23 13:53 O2 Flow Rate CV Function Including HR & BP: Stable Pain Control: Satisfactory Nausea & Vomiting: Negative Mental Status: Baseline Respiratory Status: Airway Patent Hydration Status: Satisfactory Anesthesia Complications: None
--- NOTE | 2023-09-21 15:28 | PROVIDER PROGRESS NOTE ---
Progress Note Patient with some post op nausea, now improved. Pain controlled. VSS Incision c/d/i with CALLIE in place, serosang output 72 y/o F s/p retrorectus 9 (5x6cm, incisional) and IPOM (4cm epigastric) ventral hernia repairs, POD#0 - discharge instructions in if patient would like to go home this afternoon. Otherwise, plan to stay overnight and home tomorrow. Pain meds sent to pharmacy. - f/u with surgery clinic for CALLIE removal when output <20mL/day.
[2023-09-21] MEDS: ACETAMINOPHEN 325 MG TABLET PO PRN (16:18)
[2023-09-21] MEDS: IBUPROFEN 600 MG TABLET PO PRN (21:10)
[2023-09-22 08:03] VITALS: BP 107/54; O2SAT 94
[2023-09-22] MEDS: oxyCODONE 5 MG TABLET PO PRN (08:22)
== END 2023-09-22 08:50 | disposition home or self-care (01) ==
LOC: SDS 06:24 → MS3 12:53 → SDS 09-22 08:50
PROVIDERS: ATTEND Surgery
PROC: 0WUF0JZ Supplement Abdominal Wall with Synthetic Substitute, Open Approach (ICD-10-PCS; principal; 2023-09-21 07:30)
DX: K43.9 Ventral hernia without obstruction or gangrene (principal); K43.2 Incisional hernia without obstruction or gangrene; E11.9 Type 2 diabetes mellitus without complications
CPT/HCPCS: 49593; A9270; C1781; J7120

== ENCOUNTER 2023-11-10 07:46 | Outpatient (CLI) | payer MEDICARE ==
[2023-11-10 12:07] LABS: BASOPHILS # (AUTO) 0.1 10^3/uL (0.0-0.1); BASOPHILS % (AUTO) 1.4 %; EOSINOPHILS # (AUTO) 0.1 10^3/uL (0.0-0.7); HCT - HEMATOCRIT 45.5 % (37.0-47.0); HGB - HEMOGLOBIN 14.8 g/dL (12.0-16.0); LYMPHOCYTES # (AUTO) 1.6 10^3/uL (1.5-3.5); LYMPHOCYTES % (AUTO) 36.1 %; MEAN CORPUSCULAR HEMOGLOBIN 29.1 pg (27.0-31.0); MEAN CORPUSCULAR HGB CONC 32.5 g/dL (32.0-36.0); MEAN CORPUSCULAR VOLUME 89.4 fL (81.0-99.0); MEAN PLATELET VOLUME 9.9 fL (7.9-10.8); MONOCYTES # (AUTO) 0.3 10^3/uL (0.0-1.0); MONOCYTES % (AUTO) 7.5 %; NEUTROPHILS # (AUTO) 2.3 10^3/uL (1.5-6.6); NEUTROPHILS % (AUTO) 51.8 %; PLT - PLATELET COUNT 194 10^3/uL (130-450); RED BLOOD COUNT 5.09 10^6/uL (4.20-5.40); RED CELL DISTRIBUTION WIDTH 12.6 % (12.0-15.0); WHITE BLOOD COUNT 4.4 x10^3/uL (4.8-10.8)
[2023-11-10 12:14] LABS: ALBUMIN 4.3 g/dL (3.2-5.5); ALBUMIN/GLOBULIN RATIO 1.9 (1.0-2.2); ALKALINE PHOSPHATASE 81 IU/L (42-121); ALT ALANINE AMINOTRANSFERASE 13 IU/L (10-60); AST ASPARTATE AMINOTRANSFERASE 16 IU/L (10-42); BILIRUBIN,TOTAL 1.1 mg/dL (0.2-1.0); BUN - BLOOD UREA NITROGEN 18 mg/dL (6-20); CALCIUM 9.6 mg/dL (8.5-10.3); CARBON DIOXIDE - CO2 30 mmol/L (21-32); CHLORIDE 106 mmol/L (101-111); CHOL/HDL RATIO 6.1 (<4.4); CHOLESTEROL 236 mg/dL; CREATININE 0.8 mg/dL (0.6-1.3); GFR - MDRD 71 (>89); GLUCOSE 137 mg/dL (74-104); HDL CHOLESTEROL 39 mg/dL; LDL CHOLESTEROL,CALCULATED 155 mg/dL; POTASSIUM 4.3 mmol/L (3.5-4.5); SODIUM 140 mmol/L (135-145); TOTAL PROTEIN 6.6 g/dL (6.4-8.9); TRIGLYCERIDES 210 mg/dL; VLDL CHOLESTEROL 42 mg/dL
[2023-11-10 12:20] LABS: ESTIMATED AVERAGE GLUCOSE 131 mg/dL (70-100); HEMOGLOBIN A1c% 6.2 % (4.27-6.07)
== END 2023-11-10 07:47 | disposition home or self-care (01) ==
LOC: LAB.N 07:46
PROVIDERS: ATTEND Physician Assistant
DX: E11.9 Type 2 diabetes mellitus without complications (principal); E78.5 Hyperlipidemia, unspecified
CPT/HCPCS: 36415; 80053; 80061; 83036; 83721; 85025